=== PATIENT | male | born 1960 | race Caucasian/White ===

== ENCOUNTER 2020-12-01 06:08 | Emergency (ER) | payer OTHER ==
[~2020-12-01] VITALS: Ht 172.7 cm; Wt 99.8 kg
[2020-12-01] MEDS ORDERED: LISINOPRIL10 MG PO (06:22)
[2020-12-01] MEDS ORDERED: TRAMADOL 50 MG50 MG PO (06:23)
[2020-12-01 06:59] LABS: URINE BLOOD NEGATIVE (Negative); URINE CLARITY CLEAR; URINE COLOR YELLOW; URINE GLUCOSE-RANDOM NEGATIVE (Negative); URINE KETONES NEGATIVE (Negative); URINE LEUKOCYTES-REFLEX NEGATIVE (Negative); URINE NITRITE-REFLEX NEGATIVE (Negative); URINE PROTEIN NEGATIVE (Negative); URINE SPECIFIC GRAVITY >= 1.030 (1.005-1.030); URINE UROBILINOGEN 0.2 E.U./dl (0.2-1.0)
[2020-12-01 07:08] LABS: ICTOTEST (BILI CONFIRMATORY) Positive (Negative); URINE BILIRUBIN 3+ (Negative)
[2020-12-01 07:35] LABS: BACTERIA-REFLEX 1-9 Few /HPF (None Seen); CASTS None Seen /LPF (None Seen); CRYSTALS None Seen /LPF (None Seen); MUCUS None Seen strn/LPF (None Seen); SQUAMOUS 0-3 Few /LPF (0-3); URINE RBC 0-2 Rare /HPF (0-2); URINE WBC-REFLEX 0-5 Rare /HPF (0-5)
[2020-12-01 07:52] LABS: ABSOLUTE BASOPHILS 0.1 thou/uL (0.0-0.2); ABSOLUTE EOSINOPHILS 0.2 thou/uL (0.0-0.7); ABSOLUTE LYMPHOCYTES 1.7 thou/uL (0.8-5.3); ABSOLUTE MONOCYTES 0.6 thou/uL (0.0-1.2); EOSINOPHILS 1.8 %; HEMATOCRIT 46.9 % (42.0-52.0); HEMOGLOBIN 16.4 gm/dL (14.0-18.0); LYMPHOCYTES 15.8 %; MCH 31.4 pg (26.0-34.0); MCV 89.8 fL (80.0-100.0); MONOCYTES 5.6 %; MPV 7.9 fl. (7.2-11.1); NUCLEATED RBCS 0 /100WBC; PLATELET COUNT* 217 thou/uL (150-400); POLYS 75.8 %; RBC 5.23 mil/uL (4.50-6.00); RDW-CV 12.8 % (10.5-14.5); WBC 10.6 thou/uL (4.0-11.0)
[2020-12-01 07:54] LABS: CALCIUM 9.1 mg/dL (8.5-10.1); CREATININE 1.5 mg/dL (0.6-1.3); POTASSIUM 3.8 mmol/L (3.5-5.1)
[2020-12-01 07:58] LABS: ALBUMIN 4.1 g/dL (3.4-5.0); TOTAL BILIRUBIN 1.7 mg/dL (<0.1-1.0); TOTAL PROTEIN 7.5 g/dL (6.4-8.2)
[2020-12-01] MEDS ORDERED: FLOMAX0.4 MG PO (09:04)
[2020-12-01] MEDS ORDERED: PERCOCET PO (09:42)
[2020-12-01] MEDS ORDERED: CIPROFLOXACIN500 M1 PO (09:42)
[2020-12-01] MEDS ORDERED: ZOFRAN ODT4 MG DISSOLVE (09:42)
[2020-12-01 10:05] VITALS: BP 122/76
== END 2020-12-01 10:07 | disposition home or self-care (01) ==
LOC: M.ERS 06:08
PROVIDERS: Family Medicine; Personal Emergency Response Attendant
DX: N20.0 Calculus of kidney (principal); R11.2 Nausea with vomiting, unspecified; I10 Essential (primary) hypertension; Z88.0 Allergy status to penicillin; Z88.6 Allergy status to analgesic agent